=== PATIENT | female | born 1960 | race Caucasian/White ===

== ENCOUNTER 2025-03-29 09:19 | Outpatient (CLI) | payer OTHER | END 2025-03-29 09:20 | disposition home or self-care (01) | LOC: CSHWCC 09:19 | PROVIDERS: ATTEND Nurse Practitioner Family | DX: I87.312 Chronic venous hypertension (idiopathic) with ulcer of left lower extremity (principal); L97.321 Non-pressure chronic ulcer of left ankle limited to breakdown of skin; Z86.718 Personal history of other venous thrombosis and embolism | CPT/HCPCS: 97597; 99214; G0463 ==

== ENCOUNTER 2025-04-04 13:04 | Outpatient (CLI) | payer OTHER | END 2025-04-04 13:05 | disposition home or self-care (01) | LOC: CSHWCC 13:04 | PROVIDERS: ATTEND Nurse Practitioner Family | DX: I87.312 Chronic venous hypertension (idiopathic) with ulcer of left lower extremity (principal); L97.321 Non-pressure chronic ulcer of left ankle limited to breakdown of skin; Z86.718 Personal history of other venous thrombosis and embolism | CPT/HCPCS: 97597 ==